=== PATIENT | male | born 1995 | race Caucasian/White ===

== ENCOUNTER 2017-10-14 01:11 | Emergency (ER) | payer OTHER ==
[~2017-10-14] VITALS: Ht 182.9 cm; Wt 65.9 kg
[2017-10-14] MEDS ORDERED: NS 1,000 ML IV ONE (01:30)
[2017-10-14 01:47] LABS: BASO % 0.2 % (0.0-1.0); EOS # 0.1 10^3/uL (0.0-0.50); EOS % 1.1 % (0.0-3.0); IMMATURE GRANULOCYTE % 0.2 % (0-0); LYMPH # 3.8 10^3/uL (1.5-6.5); MEAN CORPUSCULAR HGB CONC 34.7 g/dl (32.0-36.5); MEAN CORPUSCULAR VOLUME 86.5 fl (80.0-96.0); MONO # 0.5 10^3/uL (0.0-0.8); NEUTROPHILS # 5.1 10^3/uL (1.8-7.7); NEUTROPHILS % 53.5 % (36.0-66.0); PLATELET COUNT, AUTOMATED 241 10^3/uL (150-450); RED CELL DISTRIBUTION WIDTH 11.7 % (11.5-14.5); WHITE BLOOD COUNT 9.6 10^3/uL (4.0-10.0)
[2017-10-14 02:11] LABS: ANION GAP 9 MEQ/L (8-16); BLOOD UREA NITROGEN 13 MG/DL (7-18); CALCIUM LEVEL 8.7 MG/DL (8.5-10.1); CARBON DIOXIDE LEVEL 25 MEQ/L (21-32); CHLORIDE LEVEL 105 MEQ/L (98-107); CREATININE FOR GFR 1.31 MG/DL (0.70-1.30); FREE T4 1.04 NG/DL (0.76-1.46); GLOMERULAR FILTRATION RATE > 60.0 (>60); GLUCOSE, FASTING 186 MG/DL (70-105); MAGNESIUM LEVEL 1.7 MG/DL (1.8-2.4); POTASSIUM SERUM 3.3 MEQ/L (3.5-5.1); SODIUM LEVEL 139 MEQ/L (136-145)
[2017-10-14] MEDS ORDERED: POTASSIUM CHLORIDE 10 MEQ SR TABLET PO ONE (02:45)
[2017-10-14] MEDS ORDERED: MAG SULF 1GM/100ML (MAG RUN) 1 GM in APPROPRIATE DILUENT 1 EA IV ONE (02:45)
[2017-10-14 03:04] LABS: METHADONE URINE NEGATIVE (NEGATIVE)
[2017-10-14 05:15] VITALS: BP 118/55
[2017-10-14] MEDS ORDERED: METOPROLOL SUCC (TopROL XL) 50MG **XL** TAB PO ONE (05:15)
[2017-10-14] MEDS ORDERED: TOPR50TA PO (05:16)
--- NOTE | 2017-10-15 05:35 | ECGEPIP ---
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
--- NOTE | 2017-10-15 05:36 | ECGEPIP ---
Stationary ECG Study [facility] - ED Test Date: 2017-10-14 Pat Name: SERGIO ARRIAZA Department: Room: - Gender: M Equipment Installer: : 1995 Requested By: MIKO Pete Order Number: [id number] Reading MD: Delio Martins Measurements Intervals [place] Rate: 139 P: 78 [place]: 150 QRS: 97 QRSD: 97 T: 59 QT: 285 QTc: 434 Interpretive Statements SINUS TACHYCARDIA WITH OCCASIONAL VENTRICULAR PREMATURE COMPLEXES RIGHT AXIS DEVIATION NONSPECIFIC ST & T-WAVE ABNORMALITY SIMILAR TO PRIOR ON SAME DATE Electronically Signed On 10-15-2017 5:36:12 EST by Delio Martins
== END 2017-10-14 05:29 | disposition home or self-care (01) ==
LOC: M ED 01:11
DX: R00.0 Tachycardia, unspecified (principal); E87.6 Hypokalemia; E83.42 Hypomagnesemia; R94.31 Abnormal electrocardiogram [ECG] [EKG]; F12.10 Cannabis abuse, uncomplicated
CPT/HCPCS: 80048; 80307; 82550; 82553; 83735; 84439; 84443; 85025; 85379; 93005; 93041; 94760; 96374; 99285; J3475